=== PATIENT | female | born 1980 | race Caucasian/White ===

== ENCOUNTER → 2016-11-02 | Outpatient (CLI) | payer OTHER ==
[~2016-11-02] MED LIST: ABL10 PO; ATR25 PO; BUPR100T8 PO; BUPR150T7 PO; CIPR1TAB11 PO; CLON0.5T3 PO; CYNI1000; LORA-741 PO; ONDA4TAB10 SL; OXYC1TAB3 PO; OXYC7.5T65 PO; PHEN-876 PO; ROPI0.5T15 PO; SRQ/200 PO; SUMA50TA15 PO; VENL150C PO
[2016-11-02 16:37] LABS: BLOOD UREA NITROGEN 9 mg/dl (7-18); BUN/CREATININE RATIO 12.3 (10-20); CALCIUM 8.4 mg/dl (8.5-10.1); CARBON DIOXIDE 26 mmol/L (21-32); CHLORIDE 107 mmol/L (98-107); CREATININE 0.76 mg/dl (0.60-1.20); GLUCOSE 116 mg/dl (70-99); POTASSIUM 3.3 mmol/L (3.5-5.1); SODIUM 141 mmol/L (136-145)
[2016-11-02 16:48] LABS: CHOLESTEROL 187 mg/dl (0-200); CHOLESTEROL/HDL RATIO 4.3; HDL CHOLESTEROL 44 mg/dl; LDL CHOLESTEROL CALCULATED 80 mg/dl; TRIGLYCERIDES 314 mg/dl (0-150); VERY LOW DENSITY LIPOPROT CALC 63 mg/dl
[2016-11-03 06:16] LABS: ESTIMATED AVERAGE GLUCOSE 123 mg/dl; HA1C FLAG Normal (Normal)
== END | disposition home or self-care (01) ==
LOC: C.LABBFT 12:28
PROVIDERS: ATTEND Internal Medicine
DX: E11.9 Type 2 diabetes mellitus without complications (principal); E78.00 Pure hypercholesterolemia, unspecified; E87.6 Hypokalemia; E66.9 Obesity, unspecified

== ENCOUNTER 2016-12-27 17:30 | Emergency (ER) | payer OTHER ==
[~2016-12-27] VITALS: Ht 167.6 cm; Wt 129.8 kg
[~2016-12-27 17:30] MED LIST changes: -ABL10 PO; -ATR25 PO; -BUPR100T8 PO; -BUPR150T7 PO; -CIPR1TAB11 PO; -CYNI1000; -LORA-741 PO; -ONDA4TAB10 SL; -OXYC1TAB3 PO; -OXYC7.5T65 PO; -PHEN-876 PO
[2016-12-27 17:38] VITALS: TEMP 36.8; Ht 167.6 cm; Wt 129.8 kg
[2016-12-27 18:11] LABS: URINE APPEARANCE CLOUDY (CLEAR); URINE BILIRUBIN NEG (NEG); URINE COLOR YELLOW; URINE EPITHELIAL CELL AUTO >30 /lpf (0-5); URINE NITRITE NEG (NEG); URINE PH 5.5 (4.5-7.5); URINE SPECIFIC GRAVITY 1.027 (1.000-1.030); UROBILINOGEN NEG (NEG)
[2016-12-27 18:15] LABS: MANUAL MICROSCOPIC REQUIRED? NO; REVIEW REQ? YES
[2016-12-27 18:31] LABS: BASO % 0.5 %; BASO ABS # 0.04 K/uL (0-0.2); COMPLETE YES; EOS % 0.8 %; HEMATOCRIT 41.3 % (37-47); IG% 0.1 %; LYMPH % 35.9 %; LYMPH ABS # 2.85 K/uL (1.2-3.4); MEAN CELL VOLUME 88.1 fL (80-100); MEAN CORPUSCULAR HEMOGLOBIN 29.2 pg (25-34); MEAN CORPUSCULAR HGB CONC 33.2 g/dl (32-36); MEAN PLATELET VOLUME 10.8 fL (7.4-10.4); MONO % 7.6 %; NEUT % 55.1 %; PLATELET COUNT 342 K/uL (130-400); RED BLOOD COUNT 4.69 M/uL (4.2-5.4); WHITE BLOOD COUNT 7.94 K/uL (4.8-10.8)
[2016-12-27 18:41] LABS: BENZODIAZEPINE, URINE NEG (NEG); COCAINE,URINE NEG (NEG); PHENCYCLIDINE, URINE NEG (NEG)
[2016-12-27] MEDS ORDERED: LORA-741 PO (18:42)
[2016-12-27] MEDS ORDERED: ATR25 PO (18:42)
[2016-12-27] MEDS ORDERED: ABL10 PO (18:42)
[2016-12-27] MEDS ORDERED: BUPR150T7 PO (18:42)
[2016-12-27 18:48] LABS: CALCIUM 8.3 mg/dl (8.5-10.1); CREATININE 0.95 mg/dl (0.60-1.20); POTASSIUM 3.6 mmol/L (3.5-5.1)
[2016-12-27 18:58] LABS: THYROID STIMULATING HORMONE 1.71 uIu/ml (0.300-4.500)
[2016-12-27 19:12] LABS: URINE MUCUS PRESENT (NONE PRSENT)
[2016-12-27 19:29] VITALS: BP 115/72; PULSE 86; O2SAT 99
[2016-12-27 19:38] LABS: PREG INTERNAL NEGATIVE QC NEG CLEAR BACKGROUND; PREG INTERNAL POSITIVE QC POS CONTROL LINE
--- NOTE | 2016-12-27 21:46 | EMERGENCY ROOM VISIT NOTE ---
History Report prepared by Em: Felicia Leblanc Under the Supervision of: Dr. Hector Mosquera M.D. First contact with patient: 17:43 Chief Complaint: MENTAL HEALTH EVALUATION Stated Complaint: PYSCH EVAL- MEDS NOT WORKING- PHYSICIAN REFERRED History of Present Illness The patient is a 36 year old female who presents to the Emergency Room with complaints of persistent manic episodes starting [employer]. She was referred to the ED by her [facility] therapist who is concerned that the patient is manic. The patient is concerned that her medications are not working. She has gained 40 lbs in 3 years after starting Effexor and Seroquel despite having surgery for weight loss. She has had a short temper recently and has been spending money liberally. She reports being unable to sleep well through out the night and pacing in her room. She does not feel like herself. She has 2 stepchildren at home, but feels like she has no energy to do anything. She voiced her concerns to her therapist who told her to go to the ED. She denies any chance of . Her last menstrual period was 3 weeks ago. She denies having any pain. She denies any suicidal ideation or homicidal ideation. Source of History: patient Onset: [employer] Position: other (mental health) Quality: other (manic) Timing: other (perisi) Note: Pt reports spending money, weight gain, unable to sleep, does not feel like herself, low energy, short temper. Review of Systems See HPI for pertinent positives & negatives. A total of 10 systems reviewed and were otherwise negative. Past Medical & Surgical Medical Problems: (1) Bipolar disorder (2) Inevitable Surgical Problems: (1) Gastric bypass status for obesity Family History Cancer Diabetes mellitus Hypertension Lung disease Seizures Social History Smoking Status: Never Smoker Alcohol Use: none Drug Use: none Marital Status: single Housing Status: lives with family Occupation Status: employed Current/Historical Medications Scheduled Aripiprazole (Abilify), 10 MG PO QPM Bupropion Hcl (Wellbutrin Sr), 75 MG PO QAM Sumatriptan Succinate (Imitrex), 50 MG PO PRN Scheduled PRN Hydroxyzine HCl (Hydroxyzine HCl), 25 MG PO DAILY PRN for Anxiety/Agitation Lorazepam (Ativan), 0.5 MG PO Q6H PRN for Anxiety Allergies Coded Allergies: BEE STING (Verified Allergy, Intermediate, Redness/Hot, 12/27/16) Phenol (Verified Allergy, Intermediate, REDNESS AT INJECTION SITE, 12/27/16) Exenatide (Verified Allergy, Mild, REDNESS AT INJECTION SITE, 12/27/16) Neomycin (Verified Allergy, Mild, EAR DROPS -RASH IN EAR, 12/27/16) Metformin (Verified Adverse Reaction, Intermediate, SEVERE DIARRHEA, ) Zolpidem (Verified Adverse Reaction, Intermediate, INCREASED ANXIETY, ) Adhesives (Verified Adverse Reaction, Mild, RASH, 12/27/16) Physical Exam Vital Signs Date Time Temp Pulse Resp B/P (MAP) Pulse Ox O2 Delivery O2 Flow Rate FiO2 12/27/16 19:29 86 18 115/72 99 12/27/16 17:38 36.8 79 17 108/80 98 Room Air Physical Exam GENERAL: Patient is a healthy-appearing well-nourished HEAD: Normocephalic atraumatic EYES: Ocular movements intact pupils equal and react to light OROPHARYNX mucous membranes are moist no exudates present no erythema or edema present NECK: Supple no nuchal rigidity CHEST: Good equal expansion LUNGS: Clear and equal to auscultation CARDIAC: Normal S1 and S2 ABDOMEN: Soft nontender no guarding BACK: No CVA tenderness EXTREMITIES: No pain upon palpation normal muscle strength in all groups no clubbing cyanosis or edema NEURO: Patient is following commands is answering questions appropriately. Alert and oriented x3 Cranial Nerves 2-12 grossly intact PSYCH: Denies SI/HI on exam. Medical Decision & Procedures Laboratory Results 12/27/16 18:04 Red Blood Count 4.69, Mean Corpuscular Volume 88.1, Mean Corpuscular Hemoglobin 29.2, Mean Corpuscular Hemoglobin Concent 33.2, Mean Platelet Volume 10.8, Neutrophils (%) (Auto) 55.1, Lymphocytes (%) (Auto) 35.9, Monocytes (%) (Auto) 7.6, Eosinophils (%) (Auto) 0.8, Basophils (%) (Auto) 0.5, Neutrophils # (Auto) 4.38, Lymphocytes # (Auto) 2.85, Monocytes # (Auto) 0.60, Eosinophils # (Auto) 0.06, Basophils # (Auto) 0.04 12/27/16 18:04 Test 12/27/16 17:50 12/27/16 18:04 Urine Color YELLOW Urine Appearance CLOUDY (CLEAR) Urine pH 5.5 (4.5-7.5) Urine Specific [place] 1.027 (1.000-1.030) Urine Protein NEG (NEG) Urine Glucose (UA) 3+ (NEG) Urine Ketones TRACE (NEG) Urine Occult Blood TRACE (NEG) Urine Nitrite NEG (NEG) Urine Bilirubin NEG (NEG) Urine Urobilinogen NEG (NEG) Urine Leukocyte Esterase NEG (NEG) Urine WBC (Auto) 5-10 /hpf (0-5) Urine RBC (Auto) 0-4 /hpf (0-4) Urine Hyaline Casts (Auto) 10-30 /lpf (0-5) Urine Epithelial Cells (Auto) >30 /lpf (0-5) Urine Bacteria (Auto) 1+ (NEG) Urine Pathogenic Casts /lpf (0) Urine Mucus PRESENT (NONE PRSENT) Urine Test NEG (NEG) Urine Opiates Screen NEG (NEG) Urine Methadone, Qualitative NEG (NEG) Urine Barbiturates NEG (NEG) Urine Phencyclidine (PCP) Level NEG (NEG) Ur Amphetamine/Methamphetamine NEG (NEG) MDMA (Ecstasy) Screen POS (NEG) Urine Benzodiazepines Screen NEG (NEG) Urine Cocaine Metabolite NEG (NEG) Urine Marijuana (THC) NEG (NEG) White Blood Count 7.94 K/uL (4.8-10.8) Red Blood Count 4.69 M/uL (4.2-5.4) Hemoglobin 13.7 g/dL (12.0-16.0) Hematocrit 41.3 % (37-47) Mean Corpuscular Volume 88.1 fL (80-100) Mean Corpuscular Hemoglobin 29.2 pg (25-34) Mean Corpuscular Hemoglobin Concent 33.2 g/dl (32-36) Platelet Count 342 K/uL (130-400) Mean Platelet Volume 10.8 fL (7.4-10.4) Neutrophils (%) (Auto) 55.1 % Lymphocytes (%) (Auto) 35.9 % Monocytes (%) (Auto) 7.6 % Eosinophils (%) (Auto) 0.8 % Basophils (%) (Auto) 0.5 % Neutrophils # (Auto) 4.38 K/uL (1.4-6.5) Lymphocytes # (Auto) 2.85 K/uL (1.2-3.4) Monocytes # (Auto) 0.60 K/uL (0.11-0.59) Eosinophils # (Auto) 0.06 K/uL (0-0.5) Basophils # (Auto) 0.04 K/uL (0-0.2) RDW Standard Deviation 40.2 fL (36.4-46.3) RDW Coefficient of Variation 12.6 % (11.5-14.5) Immature Granulocyte % (Auto) 0.1 % Immature Granulocyte # (Auto) 0.01 K/uL (0.00-0.02) Anion Gap 9.0 mmol/L (3-11) Est Creatinine Clear Calc Drug Dose 110.9 ml/min Estimated GFR () 88.1 Estimated GFR (Non- 76.0 BUN/Creatinine Ratio 9.0 (10-20) Calcium Level 8.3 mg/dl (8.5-10.1) Total Bilirubin 0.8 mg/dl (0.2-1) Direct Bilirubin 0.1 mg/dl (0-0.2) Aspartate Amino Transf (AST/SGOT) 6 U/L (15-37) Alanine Aminotransferase (ALT/SGPT) 15 U/L (12-78) Alkaline Phosphatase 75 U/L (45-117) Total Protein 7.6 gm/dl (6.4-8.2) Albumin 3.8 gm/dl (3.4-5.0) Thyroid Stimulating Hormone (TSH) 1.710 uIu/ml (0.300-4.500) Ethyl Alcohol mg/dL < 3.0 mg/dl (0-3) Labs reviewed by ED physician. ED Course 175: Past medical records reviewed. The patient was evaluated in room A6. A complete history and physical examination was performed. 1925: Upon reexamination the patient is resting comfortably. I discussed results and treatment plan with the patient. She verbalizes agreement and understanding. The patient is ready for discharge. Medical Decision Differential diagnosis: Etiologies such as mood disorder, infection, hypoglycemia, electrolyte abnormalities, cardiac sources, intracerebral event, toxicologic, neurologic, as well as others were entertained. Medication Reconciliation: I attest that I have personally reviewed the patient' s current medication list Blood Pressure Screening: Patient was found to have normal blood pressure on screening and does not require follow up. This is a 36-year-old female who presents emergency department complaining of a manic episode. Patient reports she is having trouble sleeping however she denies being suicidal or homicidal. She was medically cleared by me. She was evaluated by case management. I do feel that the patient is well enough that she can be safely discharged home. The patient again denies being suicidal or homicidal. Case management also feels that the patient can be safely discharged home for follow-up with primary care physician. Impression Primary Impression: Mood disorder Scribe Attestation The scribe's documentation has been prepared under my direction and personally reviewed by me in its entirety. I confirm that the note above accurately reflects all work, treatment, procedures, and medical decision making performed by me. Departure Information Dispostion Home / Self-Care Referrals Lio Manzanares M.D. (PCP) Forms HOME CARE DOCUMENTATION FORM, IMPORTANT VISIT INFORMATION Patient Instructions My [facility] Additional Instructions Take Vistaril 4 x a day as needed Take Ativan 4x a day as needed Need follow up with PCP You have been examined and treated today on an emergency basis only. This is not a substitute for, or an effort to provide, complete comprehensive medical care. It is impossible to recognize and treat all injuries or illnesses in a single emergency department visit. It is therefore important that you follow up closely with Dr Manzanares. Call as soon as possible for an appointment. Thank you for your time and consideration. I look forward to speaking with you again soon. Please don't hesitate to call us if you have any questions.
[2017-05-23] MEDS ORDERED: SUMA50TA15 PO (12:49)
[2017-05-23] MEDS ORDERED: CYNI1000 (12:49)
[2017-06-03] MEDS ORDERED: PHEN-876 PO (07:07)
[2017-06-03] MEDS ORDERED: CIPR1TAB11 PO (07:07)
[2017-06-03] MEDS ORDERED: OXYC7.5T65 PO (07:07)
== END 2016-12-27 19:30 | disposition home or self-care (01) ==
LOC: C.EDB 17:31 → C.EDA 19:30
DX: F39 Unspecified mood [affective] disorder (principal); Z79.899 Other long term (current) drug therapy; Z82.0 Family history of epilepsy and other diseases of the nervous system; Z82.49 Family history of ischemic heart disease and other diseases of the circulatory system; Z83.3 Family history of diabetes mellitus; Z83.6 Family history of other diseases of the respiratory system; Z98.84 Bariatric surgery status

== ENCOUNTER → 2017-04-17 | Outpatient (CLI) | payer OTHER ==
[~2017-04-17] MED LIST changes: +ABL10 PO; +ATR25 PO; +BUPR150T7 PO; -CLON0.5T3 PO; +LORA-741 PO; -ROPI0.5T15 PO; -SRQ/200 PO; -VENL150C PO
[2017-04-17 17:30] LABS: BASO % 0.7 %; BASO ABS # 0.06 K/uL (0-0.2); COMPLETE YES; EOS % 1.6 %; IG% 0.1 %; LYMPH % 29.1 %; LYMPH ABS # 2.34 K/uL (1.2-3.4); MEAN CELL VOLUME 90.2 fL (80-100); MEAN CORPUSCULAR HEMOGLOBIN 30.3 pg (25-34); MEAN CORPUSCULAR HGB CONC 33.6 g/dl (32-36); MEAN PLATELET VOLUME 11.7 fL (7.4-10.4); MONO % 5.7 %; NEUT % 62.8 %; PLATELET COUNT 267 K/uL (130-400); RED BLOOD COUNT 4.88 M/uL (4.2-5.4); WHITE BLOOD COUNT 8.03 K/uL (4.8-10.8)
[2017-04-17 18:14] LABS: POTASSIUM 3.5 mmol/L (3.5-5.1)
[2017-04-17 18:19] LABS: ALB/GLOB RATIO 0.9 (0.9-2); ALKALINE PHOSPHATASE 74 U/L (45-117); ALT/SGPT 18 U/L (12-78); BLOOD UREA NITROGEN 7 mg/dl (7-18); BUN/CREATININE RATIO 6.4 (10-20); CALCIUM 9.4 mg/dl (8.5-10.1); CARBON DIOXIDE 24 mmol/L (21-32); CHLORIDE 106 mmol/L (98-107); FERRITIN 53.7 ng/ml (8.0-388.0); GLUCOSE 109 mg/dl (70-99); SODIUM 141 mmol/L (136-145)
[2017-04-17 18:21] LABS: AST/SGOT 12 U/L (15-37)
== END | disposition home or self-care (01) ==
LOC: C.LABBFT 11:49
PROVIDERS: ATTEND Internal Medicine Hematology & Oncology
DX: D50.9 Iron deficiency anemia, unspecified (principal); E87.6 Hypokalemia

== ENCOUNTER → 2017-04-18 | Outpatient (CLI) | payer OTHER | END | disposition home or self-care (01) | LOC: C.LABBFT 11:19 | PROVIDERS: ATTEND Family Medicine | DX: E53.8 Deficiency of other specified B group vitamins (principal) ==

== ENCOUNTER 2017-05-14 19:36 | Emergency (ER) | payer OTHER ==
[~2017-05-14] VITALS: Ht 167.6 cm; Wt 125.7 kg
[2017-05-14 19:42] VITALS: TEMP 36.9; Ht 167.6 cm; Wt 125.7 kg
[2017-05-14] MEDS ORDERED: ONDANSETRON INJ 2 MG/ML 2 ML VIAL IV STA (19:48)
[2017-05-14] MEDS ORDERED: MoRPHine SULFATE 4 MG/ML 1 ML CARP\\VIAL IV STA (19:48)
[2017-05-14 20:39] LABS: URINE APPEARANCE CLOUDY (CLEAR); URINE BILIRUBIN NEG (NEG); URINE COLOR DK YELLOW; URINE EPITHELIAL CELL AUTO >30 /lpf (0-5); URINE NITRITE NEG (NEG); URINE PH 5.5 (4.5-7.5); URINE SPECIFIC GRAVITY 1.027 (1.000-1.030); UROBILINOGEN NEG (NEG); ZZUR CULT IF INDIC CLEAN CATCH NO
[2017-05-14 20:42] LABS: MANUAL MICROSCOPIC REQUIRED? NO; REVIEW REQ? NO
[2017-05-14] MEDS ORDERED: DiphenhydrAMINE HCL 50 MG/ML VIAL ONE (20:43)
[2017-05-14] MEDS ORDERED: DiphenhydrAMINE HCL 50 MG/ML VIAL IV STA (20:48)
[2017-05-14 20:57] LABS: BASO % 0.3 %; BASO ABS # 0.03 K/uL (0-0.2); COMPLETE YES; EOS % 0.5 %; HEMATOCRIT 40.7 % (37-47); IG% 0.2 %; LYMPH % 17.9 %; LYMPH ABS # 2.06 K/uL (1.2-3.4); MEAN CORPUSCULAR HEMOGLOBIN 30.1 pg (25-34); MEAN CORPUSCULAR HGB CONC 33.4 g/dl (32-36); MEAN PLATELET VOLUME 10.7 fL (7.4-10.4); MONO % 6.3 %; NEUT % 74.8 %; PLATELET COUNT 298 K/uL (130-400); RED BLOOD COUNT 4.52 M/uL (4.2-5.4); WHITE BLOOD COUNT 11.53 K/uL (4.8-10.8)
[2017-05-14 21:03] LABS: ISTAT CREATININE 1.1 mg/dl (0.6-1.3); ISTAT HEMOGLOBIN 14.6 g/dl (12.0-16.0); ISTAT IONIZED CALCIUM 1.12 mmol/l (1.12-1.32)
[2017-05-14 21:13] LABS: BUN/CREATININE RATIO 8.3 (10-20); CALCIUM 8.8 mg/dl (8.5-10.1); CREATININE 1.19 mg/dl (0.60-1.20); POTASSIUM 4.1 mmol/L (3.5-5.1)
[2017-05-14] MEDS ORDERED: BUPR100T8 PO (21:22)
[2017-05-14] MEDS ORDERED: ABL10 PO (21:22)
--- NOTE | 2017-05-14 21:23 | DIAGNOSTIC IMAGING REPORT ---
ABDOMEN AND PELVIS CT WITH IV CONTRAST CT DOSE: 1575.71 mGy.cm HISTORY: Right lower quadrant abdominal pain. TECHNIQUE: Multiaxial CT images of the abdomen and pelvis were performed following the use of intravenous contrast. A dose lowering technique was utilized adhering to the principles of ALARA. COMPARISON STUDY: None. FINDINGS: A 5 mm nodule within the right lower lobe on image 3. The left lung base is clear. No pneumoperitoneum. No pneumatosis. No suspicious lytic or blastic osseous lesions. Postoperative changes consistent with prior gastric bypass. Focal hypodensity within the left hepatic lobe adjacent to the falciform ligament consistent with focal fat. Otherwise, the liver, spleen, adrenal glands, pancreas are unremarkable. Punctate stone within the left kidney. Right perinephric edema. Delayed right nephrogram. Mild right hydroureteronephrosis secondary to an obstructing 8 mm stone within the distal right ureter at the level of the iliac vessels. This is best in image 70. Bladder decompressed but appears unremarkable. The uterus and ovaries are within normal limits. No bowel wall thickening or obstruction. Normal appendix. IMPRESSION: 1. An 8 mm obstructing stone within the distal right ureter resulting in mild right hydronephrosis. 2. Left-sided nephrolithiasis. No left-sided hydronephrosis. 3. No bowel wall thickening or obstruction. 4. Normal appendix. 5. A 5 mm indeterminate pulmonary nodule within the right lower lobe. Please refer to the chart below for recommended follow-up. Please refer to below summary of Fleischner criteria recommendations for follow-up of incidental CT nodules (Evelio Acosta, Guidelines for management of small pulmonary nodules detected on CT scans: A statement from the Fleischner Society, Radiology 237: [id number].) SOLID NODULES Solitary nodule size: <6 mm * Low risk patients: no follow-up needed * high risk patients: optional CT at 12 months Solitary nodule size: 6-8 mm * Low risk patients: follow-up at 6-12 months, then consider further follow-up at 18-24 months * high risk patients: initial follow-up CT at 6-12 months and then at 18-24 months if no change Solitary nodule size: >8 mm * either low or high risk patients - consider follow-up CT at 3 months, and/or CT-PET, and/or biopsy Multiple nodules size: <6 mm * Low risk patients: no routine follow-up * high risk patients: optional CT at 12 months Multiple nodules size: 6-8 mm * Low risk patients: follow-up at 3-6 months, then consider further follow-up at 18-24 months * high risk patients: follow-up at 3-6 months, then at 18-24 months if no change Multiple nodules size: >8 mm * Low risk patients: follow-up at 3-6 months, then consider further follow-up at 18-24 months * high risk patients: follow-up at 3-6 months, then at 18-24 months if no change Note: newly detected indeterminate nodule in persons 35 years of age or older. * Low risk patients: minimal or absent history of smoking and/or other known risk factors * high risk patients: history of smoking or of other known risk factors (e.g. first degree relative with lung cancer, or exposure to asbestos, radon, uranium) * if a nodule up to 8 mm is partly solid or is ground glass further follow-up is required after 24 months to exclude possible slow growing adenocarcinoma (JOHANA) SUBSOLID NODULES Solitary pure ground-glass nodule * nodule size <6 mm - no CT follow-up required * nodule size >=6 mm - follow-up CT at 6-12 months, then every 2 years until 5 years Solitary part-solid nodule * nodule size <6 mm - no CT follow-up required * nodule size >=6 mm - follow-up CT at 3-6 months. If unchanged, and solid component remains <6 mm, then annual follow-up for 5 years Multiple subsolid nodules * nodule size <6 mm - follow-up CT at 3-6 months, consider further follow-up at 2 and 4 years if stable * nodule size >=6 mm - follow-up CT at 3-6 months, subsequent management based on the most suspicious nodule(s) Electronically signed by: Sadi Torres M.D. 05/14/2017 9:21 PM Dictated Date/Time: 05/14/2017 9:12 PM
[2017-05-14 21:25] LABS: PREG INTERNAL NEGATIVE QC NEG CLEAR BACKGROUND; PREG INTERNAL POSITIVE QC POS CONTROL LINE
[2017-05-14] MEDS ORDERED: KETOROLAC TROMETHAMINE 30 MG/ML VIAL IV STA (21:31)
--- NOTE | 2017-05-14 21:31 | EMERGENCY ROOM VISIT NOTE ---
History First contact with patient: 19:43 Chief Complaint: ABDOMINAL PAIN Stated Complaint: PAIN IN R AREA OF STOMACH Nursing Triage Summary: patient to ed via triage for LRQ Abdominal pain, N/V states "i have a sharp pain in my abdomen, started about an hr ago. I still have my appendix." History of Present Illness The patient is a 37 year old female who presents to the Emergency Room with complaints of right lower quadrant pain for the past few hours described as aching, ranging in severity 7 out of 10. Nothing makes it better or worse. Patient complains of some nausea. Patient says she's had kidney stones before but this does not feel the same. Patient denies chest pain, dyspnea, back pain , fever, chills, urinary symptoms, vaginal itching or discharge. Review of Systems See HPI for pertinent positives & negatives. A total of 10 systems reviewed and were otherwise negative. Past Medical/Surgical History Medical Problems: (1) Bipolar disorder (2) Inevitable Surgical Problems: (1) Gastric bypass status for obesity Family History Cancer Diabetes mellitus Hypertension Lung disease Seizures Social History Smoking Status: Never Smoker Alcohol Use: none Drug Use: none Marital Status: single Housing Status: lives with family Occupation Status: employed Current/Historical Medications Scheduled Aripiprazole (Abilify), 10 MG PO QPM Bupropion Hcl (Wellbutrin Sr), 75 MG PO QAM Sumatriptan Succinate (Imitrex), 50 MG PO PRN Scheduled PRN Hydroxyzine HCl (Hydroxyzine HCl), 25 MG PO DAILY PRN for Anxiety/Agitation Lorazepam (Ativan), 0.5 MG PO Q6H PRN for Anxiety Allergies Coded Allergies: BEE STING (Verified Allergy, Intermediate, Redness/Hot, 12/27/16) Phenol (Verified Allergy, Intermediate, REDNESS AT INJECTION SITE, 12/27/16) Exenatide (Verified Allergy, Mild, REDNESS AT INJECTION SITE, 12/27/16) Neomycin (Verified Allergy, Mild, EAR DROPS -RASH IN EAR, 12/27/16) Metformin (Verified Adverse Reaction, Intermediate, SEVERE DIARRHEA, ) Zolpidem (Verified Adverse Reaction, Intermediate, INCREASED ANXIETY, ) Adhesives (Verified Adverse Reaction, Mild, RASH, 12/27/16) Physical Exam Vital Signs Date Time Temp Pulse Resp B/P (MAP) Pulse Ox O2 Delivery O2 Flow Rate FiO2 05/14/17 19:42 36.9 59 20 147/87 99 Room Air Physical Exam VITALS: Vitals are noted on the nurse's note and reviewed by myself. Vital signs hypertensive GENERAL: Pleasant female, in no acute distress, nondiaphoretic, well-developed well-nourished. SKIN: The skin was without rashes, erythema, edema, or bruising. There is no tenting of the skin. Capillary reflex less than 2 seconds. HEAD: Normocephalic atraumatic. EARS: External auditory canals clear, tympanic membranes pearly nix without erythema or effusion bilaterally. EYES: Pupils equal round and reactive to light and accommodation. Conjunctivae without injection, sclerae without icterus. Extraocular movements intact. NOSE: Patent, turbinates without inflammation or discharge. MOUTH: Mucous membranes moist. Pharynx without erythema or exudate. Uvula midline. Airway patent. Tongue does not deviate. NECK: Supple without nuchal rigidity. No lymphadenopathy. No thyromegaly. Cervical spine is nontender. No JVD. HEART: Regular rate and rhythm without murmurs gallops or rubs. LUNGS: Clear to auscultation bilaterally without wheezes, rales or rhonchi. No dullness to percussion. No retractions or accessory muscle use. ABDOMEN: Positive bowel sounds x 4. Normal tympanic percussion. Soft, protuberant, obese, tender to palpation right lower quadrant, no CVA tenderness , without masses or organomegaly. Izaguirre sign negative. No guarding or rebound tenderness. MUSCULOSKELETAL: No muscle atrophy, erythema, or edema noted. NEURO: Patient was alert and oriented to person place and time. Normal sensation to light and sharp touch. No focal neurological deficits. Medical Decision & Procedures Laboratory Results 05/14/17 19:45 Red Blood Count 4.52, Mean Corpuscular Volume 90.0, Mean Corpuscular Hemoglobin 30.1, Mean Corpuscular Hemoglobin Concent 33.4, Mean Platelet Volume 10.7, Neutrophils (%) (Auto) 74.8, Lymphocytes (%) (Auto) 17.9, Monocytes (%) (Auto) 6.3, Eosinophils (%) (Auto) 0.5, Basophils (%) (Auto) 0.3, Neutrophils # (Auto) 8.63, Lymphocytes # (Auto) 2.06, Monocytes # (Auto) 0.73, Eosinophils # (Auto) 0.06, Basophils # (Auto) 0.03 05/14/17 19:45 Test 05/14/17 19:45 05/14/17 20:12 05/14/17 20:50 White Blood Count 11.53 K/uL (4.8-10.8) Red Blood Count 4.52 M/uL (4.2-5.4) Hemoglobin 13.6 g/dL (12.0-16.0) Hematocrit 40.7 % (37-47) Mean Corpuscular Volume 90.0 fL (80-100) Mean Corpuscular Hemoglobin 30.1 pg (25-34) Mean Corpuscular Hemoglobin Concent 33.4 g/dl (32-36) Platelet Count 298 K/uL (130-400) Mean Platelet Volume 10.7 fL (7.4-10.4) Neutrophils (%) (Auto) 74.8 % Lymphocytes (%) (Auto) 17.9 % Monocytes (%) (Auto) 6.3 % Eosinophils (%) (Auto) 0.5 % Basophils (%) (Auto) 0.3 % Neutrophils # (Auto) 8.63 K/uL (1.4-6.5) Lymphocytes # (Auto) 2.06 K/uL (1.2-3.4) Monocytes # (Auto) 0.73 K/uL (0.11-0.59) Eosinophils # (Auto) 0.06 K/uL (0-0.5) Basophils # (Auto) 0.03 K/uL (0-0.2) RDW Standard Deviation 42.8 fL (36.4-46.3) RDW Coefficient of Variation 13.2 % (11.5-14.5) Immature Granulocyte % (Auto) 0.2 % Immature Granulocyte # (Auto) 0.02 K/uL (0.00-0.02) Est Creatinine Clear Calc Drug Dose 86.0 ml/min Estimated GFR () 66.6 Estimated GFR (Non- 57.5 BUN/Creatinine Ratio 8.3 (10-20) Calcium Level 8.8 mg/dl (8.5-10.1) Urine Color DK YELLOW Urine Appearance CLOUDY (CLEAR) Urine pH 5.5 (4.5-7.5) Urine Specific White Owl 1.027 (1.000-1.030) Urine Protein 1+ (NEG) Urine Glucose (UA) NEG (NEG) Urine Ketones NEG (NEG) Urine Occult Blood 3+ (NEG) Urine Nitrite NEG (NEG) Urine Bilirubin NEG (NEG) Urine Urobilinogen NEG (NEG) Urine Leukocyte Esterase NEG (NEG) Urine WBC (Auto) 5-10 /hpf (0-5) Urine RBC (Auto) >30 /hpf (0-4) Urine Hyaline Casts (Auto) 1-5 /lpf (0-5) Urine Epithelial Cells (Auto) >30 /lpf (0-5) Urine Bacteria (Auto) NEG (NEG) Bedside Hemoglobin 14.6 g/dl (12.0-16.0) Bedside Hematocrit 43 % (37-47) Bedside Sodium 140 mEq/L (135-144) Bedside Potassium 4.0 mEq/L (3.3-5.0) Bedside Chloride 102 mEq/L (101-112) Bedside Total CO2 25 mEq/l (24-31) Anion Gap 18.0 mmol/L (16-25) Bedside Blood Urea Nitrogen 10 mg/dl (7-18) Bedside Creatinine 1.1 mg/dl (0.6-1.3) Bedside Glucose (other) 118 mg/dl (70-99) Bedside Ionized Calcium (Anna) 1.12 mmol/l (1.12-1.32) Medications Administered Medications (Trade) Dose Ordered Sig/Danette Route Start Time Stop Time Status Last Admin Dose Admin Morphine Sulfate (MoRPHine SULFATE INJ) 4 mg NOW STAT IV 05/14/17 19:48 05/14/17 19:52 DC 05/14/17 20:39 4 MG Ondansetron HCl (Zofran Inj) 4 mg NOW STAT IV 05/14/17 19:48 05/14/17 19:52 DC 05/14/17 20:39 4 MG Diphenhydramine HCl (Benadryl Inj) 25 mg NOW STAT IV 05/14/17 20:48 05/14/17 20:49 DC 05/14/17 20:48 25 MG ED Course Prior records/ancillary studies reviewed. Triage Nursing notes reviewed. Additional history obtained from the family. The patient's history was concerning for right lower abdominal pain. Differential diagnosis: Etiologies such as renal colic, appendicitis, diverticulitis, mesenteric ischemia, aortic pathology, infections, inflammatory bowel disease, PUD, biliary pathology, UTI, as well as others were entertained. Physical examination findings: As above. ER treatment provided: Morphine, Zofran, Benadryl. Patient had a mild rash after the morphine and was given Benadryl. This is marked as a allergy. On reassessment the patient felt better. Diagnostic interpretation by me: The labs revealed stable H&H. Urinalysis revealed hematuria. There was no sign of UTI. Imaging studies: CT of the abdomen and pelvis as above. ABDOMEN AND PELVIS CT WITH IV CONTRAST CT DOSE: 1575.71 mGy.cm HISTORY: Right lower quadrant abdominal pain. TECHNIQUE: Multiaxial CT images of the abdomen and pelvis were performed following the use of intravenous contrast. A dose lowering technique was utilized adhering to the principles of ALARA. COMPARISON STUDY: None. FINDINGS: A 5 mm nodule within the right lower lobe on image 3. The left lung base is clear. No pneumoperitoneum. No pneumatosis. No suspicious lytic or blastic osseous lesions. Postoperative changes consistent with prior gastric bypass. Focal hypodensity within the left hepatic lobe adjacent to the falciform ligament consistent with focal fat. Otherwise, the liver, spleen, adrenal glands, pancreas are unremarkable. Punctate stone within the left kidney. Right perinephric edema. Delayed right nephrogram. Mild right hydroureteronephrosis secondary to an obstructing 8 mm stone within the distal right ureter at the level of the iliac vessels. This is best in image 70. Bladder decompressed but appears unremarkable. The uterus and ovaries are within normal limits. No bowel wall thickening or obstruction. Normal appendix. IMPRESSION: 1. An 8 mm obstructing stone within the distal right ureter resulting in mild right hydronephrosis. 2. Left-sided nephrolithiasis. No left-sided hydronephrosis. 3. No bowel wall thickening or obstruction. 4. Normal appendix. 5. A 5 mm indeterminate pulmonary nodule within the right lower lobe. Please refer to the chart below for recommended follow-up. Please refer to below summary of Fleischner criteria recommendations for follow-up of incidental CT nodules (Evelio Acosta, Guidelines for management of small pulmonary nodules detected on CT scans: A statement from the Fleischner Society, Radiology 237: [phone].) SOLID NODULES Solitary nodule size: <6 mm * Low risk patients: no follow-up needed * high risk patients: optional CT at 12 months Solitary nodule size: 6-8 mm * Low risk patients: follow-up at 6-12 months, then consider further follow-up at 18-24 months * high risk patients: initial follow-up CT at 6-12 months and then at 18-24 months if no change Solitary nodule size: >8 mm * either low or high risk patients - consider follow-up CT at 3 months, and/or CT-PET, and/or biopsy Multiple nodules size: <6 mm * Low risk patients: no routine follow-up * high risk patients: optional CT at 12 months Multiple nodules size: 6-8 mm * Low risk patients: follow-up at 3-6 months, then consider further follow-up at 18-24 months * high risk patients: follow-up at 3-6 months, then at 18-24 months if no change Multiple nodules size: >8 mm * Low risk patients: follow-up at 3-6 months, then consider further follow-up at 18-24 months * high risk patients: follow-up at 3-6 months, then at 18-24 months if no change Note: newly detected indeterminate nodule in persons 35 years of age or older. * Low risk patients: minimal or absent history of smoking and/or other known risk factors * high risk patients: history of smoking or of other known risk factors (e.g. first degree relative with lung cancer, or exposure to asbestos, radon, uranium) * if a nodule up to 8 mm is partly solid or is ground glass further follow-up is required after 24 months to exclude possible slow growing adenocarcinoma (JOHANA) SUBSOLID NODULES Solitary pure ground-glass nodule * nodule size <6 mm - no CT follow-up required * nodule size >=6 mm - follow-up CT at 6-12 months, then every 2 years until 5 years Solitary part-solid nodule * nodule size <6 mm - no CT follow-up required * nodule size >=6 mm - follow-up CT at 3-6 months. If unchanged, and solid component remains <6 mm, then annual follow-up for 5 years Multiple subsolid nodules * nodule size <6 mm - follow-up CT at 3-6 months, consider further follow-up at 2 and 4 years if stable * nodule size >=6 mm - follow-up CT at 3-6 months, subsequent management based on the most suspicious nodule(s) Electronically signed by: Sadi Torres M.D. 05/14/2017 9:21 PM Dictated Date/Time: 05/14/2017 9:12 PM It appears that the patient has isolated renal colic from a right sided stone. Patient's pain was under control. She was neurovascularly and neurologically intact. She did not have acute abdomen on exam. She is advised to strain her urine until the stone passes and take medications as directed. She is advised to follow-up urology or here in the ER sooner for abdominal pain, fevers, vomiting, worsening signs or symptoms or as needed. She is advised to follow- up with a lung nodule clinic for lung nodule seen on CT imaging today. By the evaluation outlined above emergent etiologies such as appendicitis, diverticulitis, mesenteric ischemia, aortic pathology, infections, inflammatory bowel disease, PUD, biliary pathology, UTI, as well as others were deemed relatively unlikely. The pt informed about the findings as listed above. All questions were answered and pleased with the treatment. Return instructions were outlined and the patient was discharged in stable condition. Outpatient prescription management: Oxy IR 5mg 1-2 po Q4 hrs prn Zofran Patient reviewed on the [place] drug monitoring site with no red flags noted. Referral: The pt was referred to [facility] for follow up care regarding their stone. or The patient was referred back to their primary care physician for follow-up in 2 to 3 days for a recheck of the current condition. Case reviewed by attending Medical Decision As above Impression Primary Impression: Renal colic on right side Additional Impression: Lung nodule Departure Information Dispostion Home / Self-Care Condition GOOD Referrals Lio Manzanares M.D. (PCP) Patient Instructions [facility] Additional Instructions DO NOT drive, drink alcohol, operate machinery, or perform dangerous activities today. You were given medications in the ER that can affect your ability to safely function or operate a vehicle. Follow-up with the lung nodule clinic for nodule seen on CT imaging today. Case management gave you information on this. Oxycodone Immediate Release (OxyIR) 5mg: Take 1-2 pills every four hours for pain. Avoid alcohol, operating machinery or dangerous equipment, working on ladders or roofs, DRIVING, or situations where being under the influence may be dangerous. It is recommended to use an [id number] stool softener such as Colace, 100mg twice daily while taking this medication to avoid constipation. Zofran 4 mg: Take one every six hours as needed for nausea. Avoid alcohol, operating machinery or dangerous equipment, working on ladders or roofs, DRIVING , or situations where being under the influence may be dangerous. Ibuprofen(Motrin, Advil) may be used for fever or pain. Use 600mg every six hours as needed. Take with food. Avoid using more than 2400mg in a 24 hour period. Do not use 2400mg per day for more than three consecutive days without physician direction. Prolonged inappropriate use can lead to stomach upset or ulcers. This medication can be taken if you need to drive, work, or perform activities which may be dangerous when taking narcotic pain medication. (AND/OR) Acetaminophen(Tylenol) may be used for fever or pain. Use 1000mg every six hours as needed. Avoid using more than 3000mg in a 24 hour period. This medication can be taken if you need to drive, work, or perform activities which may be dangerous when taking narcotic pain medication. Strain your urine and collect all the stones or debris for the urologists. Rest and avoid strenuous activity until your stone passes and symptoms resolve. Drink plenty of fluids. Continue current medications. Return to the ER for worsening abdominal or back pain, vomiting, fevers, passing out, or as needed. Follow up with urology in 2-3 days, call for an appointment. Problem Qualifiers
[2017-05-14] MEDS ORDERED: OXYC1TAB3 PO (21:35)
[2017-05-14] MEDS ORDERED: ONDA4TAB10 SL (21:35)
[2017-05-14] MEDS ORDERED: ONDANSETRON HOME PACK 4MG OD TAB PO ONE (21:45)
[2017-05-14] MEDS ORDERED: OXYCODONE IR HOME PACK PO ONE (21:45)
[2017-05-14 21:50] VITALS: BP 134/87; PULSE 68; O2SAT 98
== END 2017-05-14 21:52 | disposition home or self-care (01) ==
LOC: C.EDB 19:37 → C.EDA 21:52
DX: N20.2 Calculus of kidney with calculus of ureter (principal); R91.1 Solitary pulmonary nodule; R10.31 Right lower quadrant pain

== ENCOUNTER → 2017-06-03 | Day surgery (SDC) | payer OTHER ==
[2017-05-23 12:50] VITALS: BMI 45.0
--- NOTE | 2017-05-23 13:20 | PAT Medication Instructions ---
Service Date May 23, 2017. Current Home Medication List Aripiprazole (Abilify), 10 MG PO QPM Bupropion (Wellbutrin Sr), 100 MG PO QAM Cyanocobalamin (Cyanocobalamin), Unknown Dose Q3MO Sumatriptan Succinate (Imitrex), 50 MG PO UD PRN for Migraine Medication Instructions For Your Scheduled Surgery - Take the following medications the morning of surgery with a sip of water OTHERWISE NOTHING TO EAT OR DRINK AFTER MIDNIGHT: Sumatriptan Succinate (Imitrex), 50 MG PO UD PRN for Migraine Bupropion (Wellbutrin Sr), 100 MG PO QAM - Take the following medications as scheduled the night before surgery: Sumatriptan Succinate (Imitrex), 50 MG PO UD PRN for Migraine Aripiprazole (Abilify), 10 MG PO QPM If you have any questions please call us at [phone] or [phone] or [phone]
[2017-05-23 13:53] LABS: BASO % 0.9 %; BASO ABS # 0.06 K/uL (0-0.2); COMPLETE YES; HEMATOCRIT 41.5 % (37-47); LYMPH % 32.7 %; LYMPH ABS # 2.16 K/uL (1.2-3.4); MEAN CELL VOLUME 90.4 fL (80-100); MEAN CORPUSCULAR HEMOGLOBIN 30.1 pg (25-34); MEAN CORPUSCULAR HGB CONC 33.3 g/dl (32-36); MEAN PLATELET VOLUME 10.5 fL (7.4-10.4); MONO % 7.1 %; NEUT % 57.3 %; PLATELET COUNT 329 K/uL (130-400); RED BLOOD COUNT 4.59 M/uL (4.2-5.4); URINE APPEARANCE CLEAR (CLEAR); URINE BILIRUBIN NEG (NEG); URINE COLOR YELLOW; URINE NITRITE NEG (NEG); URINE SPECIFIC GRAVITY 1.014 (1.000-1.030); UROBILINOGEN NEG (NEG); WHITE BLOOD COUNT 6.61 K/uL (4.8-10.8)
[2017-05-23 13:56] LABS: MANUAL MICROSCOPIC REQUIRED? NO; REVIEW REQ? NO
--- NOTE | 2017-05-23 14:32 | DIAGNOSTIC IMAGING REPORT ---
CHEST 2 VIEWS ROUTINE HISTORY: 37 years-old Female PAT preoperative exam without acute chest complaints COMPARISON: Chest radiograph 11/03/2013 TECHNIQUE: PA and lateral views of the chest FINDINGS: Cardiomediastinal and hilar silhouettes are within normal limits. No pneumothorax, pleural effusion, focal airspace consolidation or overt pulmonary edema. Bones of the chest are grossly intact. No significant degenerative changes. Patient obesity noted. IMPRESSION: No acute cardiopulmonary process. The above report was generated using voice recognition software. It may contain grammatical, syntax or spelling errors. Electronically signed by: Kevin Thomas M.D. 05/23/2017 2:30 PM Dictated Date/Time: 05/23/2017 2:30 PM
[2017-05-23 16:29] LABS: CALCIUM 8.7 mg/dl (8.5-10.1); CREATININE 1.2 mg/dl (0.60-1.20); POTASSIUM 4.1 mmol/L (3.5-5.1)
[~2017-06-03] VITALS: Ht 167.6 cm; Wt 127.6 kg
[~2017-06-03] MED LIST changes: -ATR25 PO; +ATROPINE SULFATE 0.1 MG/ML 5ML SYR IV PRN; +BUPR100T8 PO; -BUPR150T7 PO; +CIPR1TAB11 PO; +CIPROFLOXACIN / D5W 400 MG IV SCH; +CONRAY 30% 150ML BOTTLE ONE; +CYNI1000; +EpHEDrine SULFATE INJ 50 MG/ML AMP IV PRN; +FENTANYL CITRATE INJ 50 MCG/1 ML 2 ML VIAL IV PRN; +FENTANYL CITRATE INJ 50 MCG/1 ML 2 ML VIAL ONE; +FLUMAZENIL 0.1 MG/1 ML 10 ML VIAL IV PRN; +KETOROLAC TROMETHAMINE 30 MG/ML VIAL ONE; +LABETALOL HCL IV 5 MG/ML 20ML IV PRN; +LACTATED RINGER'S 1000ML 1,000 ML IV SCH; +LIDOCAINE HCL 2% 2 ML VIAL (20MG/ML) ONE; -LORA-741 PO; +MIDAZOLAM HCL 1 MG/ML 2ML VIAL ONE; +NALOXONE HCL 0.4 MG/1 ML VIAL/CARP IV PRN; +ONDANSETRON INJ 2 MG/ML 2 ML VIAL IV PRN; +ONDANSETRON INJ 2 MG/ML 2 ML VIAL ONE; +OXYC7.5T65 PO; +OXYCODONE/ACETAMINOPHEN 7.5-325 TAB PO PRN; +PHEN-876 PO; +PROMETHAZINE HCL INJ 12.5 MG in SODIUM CHLORIDE 0.9% 50ML 50 ML IV PRN; +PROPOFOL IV EMULSION 10 MG/ML 100 ML VIAL IV ONE; +PROPOFOL IV EMULSION 10 MG/ML 20 ML VIAL IV ONE
[2017-06-03 05:34] VITALS: BP 122/75; PULSE 71; TEMP 36.7; O2SAT 97; Ht 167.6 cm; Wt 127.6 kg
--- NOTE | 2017-06-03 07:03 | History & Physical Bridge Note ---
H&P Re-Evaluation Bridge Note: I have examined the patient, reviewed the History & Physical and in the interval since the performance of the History & Physical I have noted the following changes of clinical significance: No changes noted
--- NOTE | 2017-06-03 07:05 | [facility] Operative Report ---
Operative Report Operative Date Jun 03, 2017. Pre-Operative Diagnosis Right Ureteral Stone Post-Operative Diagnosis Same Procedure(s) Performed Cystoscopy, Right URS, Laser Litho, Retrograde, Stent Surgeon Avelino Estimated Blood Loss 5cc Findings Right obstructing stone. Specimens none Drains 5x24 R Anesthesia General Complication(s) None Disposition Recovery Room / PACU Indications Patient with obstructing stone that failed passage. Risks and benefits discussed and patient agrees to proceed. Description of Procedure Patient was consented and brought back to the operating room. Patient was placed under anesthesia in the supine position. Patient was prepped and draped in the regular sterile fashion. A time out was completed. A 30degree Cystoscope was placed into the bladder and the entire bladder was examined. The UO's were identified. The right was cannulized with a catheter and a retrograde pyelogram was completed. A wire was then placed. The short rigid ureteroscope was selected and taken into the right UO. At distal-mid ureter an obstructing stone was identified. The laser was selected and the stone pulverized to dust and small fragments. The area was bypassed and the scope taken to the proximal ureter. The remainder of the ureter was clear of fragments or stone. The scope was slowly removed and the entire ureter examined. All fragments passed into the bladder and the ureter was clear of large fragments. The scope was removed and the wire maintained. With the wire in place, a 6 x [24] Double J stent was placed. It was confirmed with fluoroscopy. With the stent in place, the bladder was emptied. The scope was removed. The patient was cleaned, aroused from anesthesia, and transferred to the pacu in stable condition having tolerated the procedure well with no complications. I was present and participated in all aspects of the procedure. The patient will be monitored in the PACU until transferred. I attest to the content of the Intraoperative Record and any orders documented therein. Any exceptions are noted below.
--- NOTE | 2017-06-03 07:08 | Discharge Instructions ---
Discharge Instructions Date of Service Jun 03, 2017. Admission Reason for Admission: Ureteric Stone Discharge Discharge Diagnosis / Problem: Stone Discharge Goals Goal(s): Decrease discomfort, Improve function Activity Recommendations Activity Limitations: resume your previous activity Lifting Limitations: none Exercise/Sports Limitations: as tolerated Shower/Bathe: no limitations . Instructions / Follow-Up Instructions / Follow-Up May have blood in urine and discomfort in flank or pelvis. Call if any fevers or issues. Current Hospital Diet Patient's current hospital diet: Regular Discharge Diet Recommended Diet: Regular Diet Procedures Procedures Performed: Cystoscopy, Right URS, Laser Litho, Retrograde, Stent Pending Studies Studies pending at discharge: no Medical Emergencies . Who to Call and When: Medical Emergencies: If at any time you feel your situation is an emergency, please call 911 immediately. . Non-Emergent Contact Non-Emergency issues call your: Primary Care Provider, Urologist Call Non-Emergent contact if: you have a fever, temperature is above 101, temperature is above 101.5, your pain is not controlled, your pain is worsening . . "Provider Documentation" section prepared by Gavin You,. . VTE Core Measure Inpt VTE Proph given/why not?: Sandra Bateman, SCD's
--- NOTE | 2017-06-03 08:50 | Anesthesiology Progress Note ---
Anesthesia Post Op Note Date & Time Jun 03, 2017 at 08:49 Vital Signs Pain Intensity: 0 Vital Signs Past 12 Hours Date Time Temp Pulse Resp B/P (MAP) Pulse Ox O2 Delivery O2 Flow Rate FiO2 06/03/17 08:40 36.5 64 16 104/68 94 Room Air 06/03/17 08:25 65 14 108/67 93 Room Air 06/03/17 08:15 67 18 103/66 96 Room Air 06/03/17 08:05 70 16 96/67 95 Oxymask 8 06/03/17 07:58 36.5 71 16 106/72 95 Oxymask 8 06/03/17 05:34 36.7 71 18 122/75 (91) 97 Room Air Notes Mental Status: alert / awake / arousable, participated in evaluation Pt Amnestic to Procedure: Yes Nausea / Vomiting: adequately controlled Pain: adequately controlled Airway Patency, RR, SpO2: stable & adequate BP & HR: stable & adequate Hydration State: stable & adequate Anesthetic Complications: no major complications apparent
[2017-06-03 08:55] VITALS: BP 115/70; PULSE 67; TEMP 36.8; O2SAT 97
[2017-06-03 09:25] VITALS: BP 120/71; PULSE 77; O2SAT 98
[2017-06-03 09:55] VITALS: BP 125/75; PULSE 72; TEMP 37.1; O2SAT 97
--- NOTE | 2017-06-03 10:43 | DIAGNOSTIC IMAGING REPORT ---
RETROGRADE INCLUDES KUB CLINICAL HISTORY: 37 years-old Female presenting with RT LASER LITHO AND STENT PLACEMENT. TECHNIQUE: 6 fluoroscopic spot image(s) obtained as part of an intraoperative procedure. COMPARISON: CT from 05/14/2017 and radiograph from 05/22/2017. FINDINGS/IMPRESSION: A catheter was introduced into the distal right ureter. Contrast seen opacifying the right renal collecting system and left ureter. Subsequently, guidewire was introduced into an upper pole calyx. A double-J ureteral stent was then placed. Please see surgical report for further details. Fluoroscopy dosage (mGy): Not available. Fluoroscopy time: 28 seconds. Number of fluoroscopic spot images: 6. Electronically signed by: Constantino Ward M.D. 06/03/2017 10:42 AM Dictated Date/Time: 06/03/2017 10:40 AM
== END | disposition home or self-care (01) ==
LOC: C.ACU 05:11
PROVIDERS: ATTEND Urology
DX: N20.1 Calculus of ureter (principal); N20.0 Calculus of kidney; E11.9 Type 2 diabetes mellitus without complications; Z88.5 Allergy status to narcotic agent; F30.9 Manic episode, unspecified; E78.00 Pure hypercholesterolemia, unspecified; G47.00 Insomnia, unspecified; F41.8 Other specified anxiety disorders; Z90.89 Acquired absence of other organs; Z98.84 Bariatric surgery status; Z79.899 Other long term (current) drug therapy; E66.01 Morbid (severe) obesity due to excess calories; Z68.42 Body mass index [BMI] 45.0-49.9, adult; Z87.891 Personal history of nicotine dependence; Z82.49 Family history of ischemic heart disease and other diseases of the circulatory system; Z83.3 Family history of diabetes mellitus; Z82.0 Family history of epilepsy and other diseases of the nervous system

== ENCOUNTER → 2017-06-18 | Outpatient (CLI) | payer OTHER ==
[~2017-06-18] MED LIST changes: -ATROPINE SULFATE 0.1 MG/ML 5ML SYR IV PRN; -CIPR1TAB11 PO; -CIPROFLOXACIN / D5W 400 MG IV SCH; -CONRAY 30% 150ML BOTTLE ONE; -EpHEDrine SULFATE INJ 50 MG/ML AMP IV PRN; -FENTANYL CITRATE INJ 50 MCG/1 ML 2 ML VIAL IV PRN; -FENTANYL CITRATE INJ 50 MCG/1 ML 2 ML VIAL ONE; -FLUMAZENIL 0.1 MG/1 ML 10 ML VIAL IV PRN; -KETOROLAC TROMETHAMINE 30 MG/ML VIAL ONE; -LABETALOL HCL IV 5 MG/ML 20ML IV PRN; -LACTATED RINGER'S 1000ML 1,000 ML IV SCH; -LIDOCAINE HCL 2% 2 ML VIAL (20MG/ML) ONE; -MIDAZOLAM HCL 1 MG/ML 2ML VIAL ONE; -NALOXONE HCL 0.4 MG/1 ML VIAL/CARP IV PRN; -ONDANSETRON INJ 2 MG/ML 2 ML VIAL IV PRN; -ONDANSETRON INJ 2 MG/ML 2 ML VIAL ONE; -OXYCODONE/ACETAMINOPHEN 7.5-325 TAB PO PRN; -PROMETHAZINE HCL INJ 12.5 MG in SODIUM CHLORIDE 0.9% 50ML 50 ML IV PRN; -PROPOFOL IV EMULSION 10 MG/ML 100 ML VIAL IV ONE; -PROPOFOL IV EMULSION 10 MG/ML 20 ML VIAL IV ONE
--- NOTE | 2017-06-18 13:53 | DIAGNOSTIC IMAGING REPORT ---
(RENAL)RETROPERITON COMP CLINICAL HISTORY: 37 years-old Female presenting with N20.1 Ureteric [id number]. TECHNIQUE: Real-time grayscale and limited color Doppler ultrasound imaging of the kidneys and bladder was performed. COMPARISON: CT from 05/14/2017.. FINDINGS: Right kidney: Normal echogenicity. Right kidney measures 11.8 cm. No hydronephrosis. No convincing evidence of calculus or mass. Normal perfusion. Left kidney: Normal echogenicity. Left kidney measures 11.9 cm. No hydronephrosis. Hyperechoic 5 mm shadowing focus with twinkling artifact consistent with calculus at the lower pole. Normal perfusion. Bladder: Incompletely distended. No ureteral jets visualized. Other: None. IMPRESSION: 1. No hydronephrosis. 2. Nonobstructing 5 mm left lower pole renal calculus. Electronically signed by: Constantino Ward M.D. 06/18/2017 1:52 PM Dictated Date/Time: 06/18/2017 1:50 PM
== END | disposition home or self-care (01) ==
LOC: C.ULTR 11:59
PROVIDERS: ATTEND Urology
DX: N20.1 Calculus of ureter (principal)

== ENCOUNTER 2017-07-29 04:58 | Day surgery (SDC) | payer OTHER ==
[2017-07-25 13:08] VITALS: BMI 45.0
[~2017-07-29] VITALS: Ht 167.6 cm; Wt 127.3 kg
[~2017-07-29 04:58] MED LIST changes: +ATR25 PO; +BENZ0.5T28 PO; -OXYC7.5T65 PO; -PHEN-876 PO
[2017-07-29 05:42] VITALS: BP 114/69; PULSE 71; TEMP 36.7; O2SAT 97; Ht 167.6 cm; Wt 127.3 kg
[2017-07-29] MEDS ORDERED: CEFAZOLIN 2000MG IV PUSH 10 ML IV SCH (06:00)
[2017-07-29] MEDS ORDERED: LACTATED RINGER'S 1000ML 1,000 ML IV SCH (06:00)
[2017-07-29] MEDS ORDERED: PROPOFOL IV EMULSION 10 MG/ML 20 ML VIAL IV ONE ×3 (06:46→08:59)
[2017-07-29] MEDS ORDERED: LIDOCAINE HCL 2% 2 ML VIAL (20MG/ML) ONE (06:46)
[2017-07-29] MEDS ORDERED: FENTANYL CITRATE INJ 50 MCG/1 ML 2 ML VIAL ONE (06:46)
[2017-07-29] MEDS ORDERED: MIDAZOLAM HCL 1 MG/ML 2ML VIAL ONE ×3 (06:46→07:33)
[2017-07-29] MEDS ORDERED: ONDANSETRON INJ 2 MG/ML 2 ML VIAL ONE (06:47)
[2017-07-29] MEDS ORDERED: BUPIVACAINE 0.5 % 5 MG/1 ML MPF 30ML VIAL ONE (06:54)
[2017-07-29] MEDS ORDERED: BACITRACIN OINT 15 GM TUBE ONE (06:54)
[2017-07-29] MEDS ORDERED: LIDOCAINE HCL 1% 20 ML VIAL ONE (06:54)
[2017-07-29] MEDS ORDERED: FENTANYL CITRATE INJ 50 MCG/1 ML 2 ML VIAL IV PRN (07:15)
[2017-07-29] MEDS ORDERED: ONDANSETRON INJ 2 MG/ML 2 ML VIAL IV PRN ×2 (07:15→09:15)
[2017-07-29] MEDS ORDERED: ATROPINE SULFATE 0.1 MG/ML 5ML SYR IV PRN (07:15)
[2017-07-29] MEDS ORDERED: LABETALOL HCL IV 5 MG/ML 20ML IV PRN (07:15)
[2017-07-29] MEDS ORDERED: SODIUM CHLORIDE 0.9% 1000ML 1,000 ML IV SCH (09:02)
--- NOTE | 2017-07-29 09:02 | [facility] Post Operative Brief Note ---
Immediate Operative Summary Operative Date Jul 29, 2017. Pre-Operative Diagnosis Poor IV Access Post-Operative Diagnosis Poor IV Access Procedure(s) Performed A-Port Insertion into Right Subclavian Vein Surgeon Dr. Boogie Win Geriatric Nurse Surgeon(s) none Estimated Blood Loss 10mL Findings patent right subclavian vein Fluids (cc crystalloids) 1100ml Specimens none per surgeon Drains none Anesthesia sedation + local Complication(s) None Disposition Recovery Room / PACU
[2017-07-29] MEDS ORDERED: OXYC-57 PO (09:05)
--- NOTE | 2017-07-29 09:09 | Discharge Instructions ---
Discharge Instructions Date of Service Jul 29, 2017. Visit Reason for Visit: Iron Deficiency Anemia Discharge Discharge Diagnosis / Problem: S/P A-port insertion Discharge Goals Goal(s): Decrease discomfort, Improve function Activity Recommendations Activity Limitations: resume your previous activity Lifting Limitations: none Exercise/Sports Limitations: rest today May Resume Sexual Activity: when tolerated Shower/Bathe: may shower/bathe in 3 days Driving or Machine Use: resume 3 days after discharge Anesthesia . Post Anesthesia Instructions: If you have had General Anesthesia or IV Sedation: * Do not drive today. * Resume driving when surgeon permits. * Do not make important decisions or sign legal documents today. * Call surgeon for: 1. Temperature elevations greater than 101 degrees F. 2. Uncontrollable pain. 3. Excessive bleeding. 4. Persistent nausea and vomiting. 5. Medication intolerance (nausea, vomiting or rash). * For nausea and vomiting use only clear liquids such as: tea, soda, bouillon until nausea subsides, then gradually increase diet as tolerated. * If you have any concerns or questions, call your surgeon's office. If physician is unavailable and it is an emergency, call 911 or go to the nearest emergency room. . Instructions / Follow-Up Instructions / Follow-Up keep the dressing on for 4 days, she can take a shower on 08/02/2017, no driving while taking pain medicine, Follow up Dr. Win 1 week, Diet Recommendations Recommended Home Diet: resume previous diet Procedures Procedures Performed: A-Port Insertion into Right Subclavian Vein Pending Studies Studies pending at discharge: no Medical Emergencies . Who to Call and When: Medical Emergencies: If at any time you feel your situation is an emergency, please call 911 immediately. . Non-Emergent Contact Non-Emergency issues call your: Surgeon Call Non-Emergent contact if: you have a fever, temperature is above 100.5, your pain is not controlled, your pain is worsening, wound has increased drainage, wound has increased redness . . "Provider Documentation" section prepared by Adele Win. . [place] Drug Monitoring Program Search Results: no issues identified
[2017-07-29] MEDS ORDERED: OXYCODONE/ACETAMINOPHEN 5-325 TAB PO PRN ×2 (09:15)
--- NOTE | 2017-07-29 09:34 | DIAGNOSTIC IMAGING REPORT ---
CHEST ONE VIEW PORTABLE CLINICAL HISTORY: post op tube position COMPARISON STUDY: 03/23/2017 FINDINGS: Moderate stable cardiomegaly. Right central catheter placed in the superior vena cava. No evidence pneumothorax. Lungs are considered clear. IMPRESSION: Central catheter placed in the superior vena cava. No evidence for pneumothorax. The above report was generated using voice recognition software. It may contain grammatical, syntax or spelling errors. Electronically signed by: Cosme Gomez M.D. 07/29/2017 9:33 AM Dictated Date/Time: 07/29/2017 9:32 AM
[2017-07-29 09:40] VITALS: BP 119/76; PULSE 66; TEMP 36.7; O2SAT 99
--- NOTE | 2017-07-29 09:40 | OPERATIVE REPORT ---
DATE OF OPERATION: 07/29/2017 PREOPERATIVE DIAGNOSIS: Difficult IV access. POSTOPERATIVE DIAGNOSIS: Same. PROCEDURE: A-port insertion on the right subclavian vein. SURGEON: Adele Win MD. ANESTHESIA: Conscious sedation plus local. ESTIMATED BLOOD LOSS: About 10 mL. FINDINGS: Patent right subclavian vein. INDICATIONS FOR THE PROCEDURE: This is a 37-year-old female who presented with difficult IV access. The patient will be required to do A-port insertion. I did talk to the patient about the benefit and risk, alternate procedure. I indicated the risks may include but not limited such as bleeding, infection, injury to vessel, injury to the lung, blood clot, dysfunction of catheter and even . The patient understands. She signed informed consent and I answered all questions. DETAILS OF PROCEDURE: We brought the patient to the OR, put the patient on the Trendelenburg position and the patient received SCD on bilateral legs to prevent DVT. Also, the patient received 2 grams Ancef IV for prophylactic antibiotic. The patient received conscious sedation by the anesthesiology. The patient's right side of the neck and the right upper chest was prepped and draped in routine sterile fashion. After time out, I used ultrasound to locate the right internal jugular vein and also we injected local anesthesia by using 1% lidocaine mixed with 0.5% Marcaine around the right neck and made a 0.5 cm incision and used the needle to puncture the right internal jugular and then we got into internal jugular; however, patient had a short neck and difficult to put the wire. At this moment, I chose the right subclavian vein, used a 15-gauge needle to puncture the right subclavian vein successfully and put the wire in and used an x-ray to confirm the wire located in the SVC. At this moment, we injected the local on the right upper chest by using 1% lidocaine mixed with 0.5% Marcaine on the right upper chest. Then I made about a 2 cm incision on the right upper chest to create a pouch for the port. Hemostasis obtained. Then I passed the dilator and catheter through the guidewire and removed the wire and then passed [id number] through the dilator sheath. Then we removed the sheath and then we sized the catheter and connected to the port. Then we used fluoroscopy again to confirm the catheter located in the junction between the superior vena cava at the right atrium. Then I used 2-0 Prolene to fix at 3 point on the chest wall. Hemostasis was obtained. Then I used 2-0 Vicryl. Closed subcutaneous layer continuous running 4-0 Vicryl, closed the skin continuous running. Then we used heparinized saline syringe to puncture the port from all sites skin, easily blood returned and we injected 10 mL heparinized saline into the port easily. Then we put the dressing on. The patient tolerated the procedure well. All the instrument, needle and sponge count correct x2 at the end of the case. After the procedure, the patient transferred to recovery room in stable condition. After the procedure, I did talk to the patient and family member about OR finding and procedure we did, they understand. I attest to the content of the Intraoperative Record and any orders documented therein. Any exception s are noted below.
[2017-07-29 10:18] VITALS: BP 122/75; PULSE 72; TEMP 36.8; O2SAT 98
--- NOTE | 2017-07-29 10:50 | Anesthesiology Progress Note ---
Anesthesia Post Op Note Date & Time Jul 29, 2017 at 10:50 Vital Signs Pain Intensity: 1 Vital Signs Past 12 Hours Date Time Temp Pulse Resp B/P (MAP) Pulse Ox O2 Delivery O2 Flow Rate FiO2 07/29/17 10:18 36.8 72 16 122/75 98 Room Air 07/29/17 09:40 36.7 66 18 119/76 99 Room Air 07/29/17 09:30 66 15 108/76 99 Room Air 07/29/17 09:20 36.2 67 15 122/79 99 Room Air 07/29/17 09:10 66 15 115/72 100 Nasal Cannula 2 07/29/17 09:00 68 16 115/77 100 Nasal Cannula 2 07/29/17 08:54 36.1 73 16 125/70 100 Nasal Cannula 2 07/29/17 05:42 36.7 71 18 114/69 (84) 97 Room Air Notes Mental Status: alert / awake / arousable, participated in evaluation Pt Amnestic to Procedure: Yes Nausea / Vomiting: adequately controlled Pain: adequately controlled Airway Patency, RR, SpO2: stable & adequate BP & HR: stable & adequate Hydration State: stable & adequate Anesthetic Complications: no major complications apparent
[2017-07-30] MEDS ORDERED: CEFAZOLIN SOD 2000MG/10 ML IV PUSH IV SCH (06:00)
== END 2017-07-29 10:21 | disposition home or self-care (01) ==
LOC: C.ACU 04:58
PROVIDERS: ATTEND Surgery
DX: Z45.2 Encounter for adjustment and management of vascular access device (principal); E11.9 Type 2 diabetes mellitus without complications; E78.5 Hyperlipidemia, unspecified; Z98.890 Other specified postprocedural states; Z90.89 Acquired absence of other organs; E66.01 Morbid (severe) obesity due to excess calories; Z68.42 Body mass index [BMI] 45.0-49.9, adult; Z79.899 Other long term (current) drug therapy; J45.909 Unspecified asthma, uncomplicated; Z98.84 Bariatric surgery status; F41.9 Anxiety disorder, unspecified; Z83.3 Family history of diabetes mellitus; Z82.49 Family history of ischemic heart disease and other diseases of the circulatory system

== ENCOUNTER → 2017-10-14 | Outpatient (CLI) | payer OTHER ==
--- NOTE | 2017-10-14 14:10 | DIAGNOSTIC IMAGING REPORT ---
RENAL ULTRASOUND CLINICAL HISTORY: Nephrolithiasis. COMPARISON STUDY: CT of the abdomen and pelvis May 14, 2017 and renal ultrasound June 18, 2017. TECHNIQUE: Sonography of the kidneys and the urinary bladder was performed. FINDINGS: There is no hydronephrosis. A 4 mm calculus within the lower pole of the left kidney is noted. The right kidney measures 12.7 cm in maximal dimension and the left measures 13.8 cm. Renal echogenicity, size and cortical thickness are normal. Both ureteral jets were visualized. IMPRESSION: 1. No hydronephrosis. 2. No change in a left renal calculus which measures approximately 4 mm. Electronically signed by: Jose Stallworth M.D. 10/14/2017 2:09 PM Dictated Date/Time: 10/14/2017 2:07 PM
== END | disposition home or self-care (01) ==
LOC: C.ULTR 12:44
PROVIDERS: ATTEND Urology
DX: N20.0 Calculus of kidney (principal)

== ENCOUNTER 2017-10-29 09:07 | Emergency (ER) | payer OTHER ==
[~2017-10-29] VITALS: Ht 167.6 cm; Wt 133.0 kg
[2017-10-29 09:13] VITALS: Ht 167.6 cm; Wt 133.0 kg
[2017-10-29] MEDS ORDERED: IBUPROFEN 600 MG TAB PO STA (09:31)
[2017-10-29] MEDS ORDERED: SERT50TA PO (09:36)
[2017-10-29] MEDS ORDERED: CYNI1000 INJ (09:37)
[2017-10-29] MEDS ORDERED: XYLOCAINE 1%/SOD BICARB 20 ML VIAL INFIL ONE (09:45)
--- NOTE | 2017-10-29 10:37 | DIAGNOSTIC IMAGING REPORT ---
R HAND MIN 3 VIEWS ROUTINE CLINICAL HISTORY: 37 years-old Female presenting with R finger pain, laceration. TECHNIQUE: Frontal, oblique, and lateral views the right hand were obtained. COMPARISON: None. FINDINGS: No acute fracture or malalignment. No advanced degenerative change. No radiographic soft tissue abnormality. The site of the reported laceration is not apparent. IMPRESSION: No acute osseous injury. Electronically signed by: Constantino Ward M.D. 10/29/2017 10:36 AM Dictated Date/Time: 10/29/2017 10:34 AM
[2017-10-29 12:00] VITALS: BP 135/92; PULSE 61; TEMP 36.9; O2SAT 100
--- NOTE | 2017-10-29 17:14 | EMERGENCY ROOM VISIT NOTE ---
ED Visit Note First contact with patient: 09:14 Chief Complaint: I cut my right middle finger at work. History of Present Illness: Ms. Mayes is a 37-year-old white female who ambulates into the ED complaining of a middle finger laceration. Patient reports less than 1 hour ago she was at work and a broken jar of pickles fell onto her right hand and she sustained a laceration to the posterior aspect of the right middle finger. Prior to discharge then attempted to control bleeding but was unsuccessful and they did not wash the wound. Associated with her laceration she reports she is having a throbbing discomfort throughout the finger and a burning sensation around the laceration. She rates her discomfort 10/10. Her pain is nonradiating. Her pain worsens with palpation throughout the entire finger and also predominantly over the laceration. She has not identified any alleviating factors related to the pain. She has not had a medication for pain prior to arrival at the hospital. She denies any associated symptoms including other hand pain, other finger pain , middle finger weakness/numbness/tingling. Review of Systems: As noted above in history of present illness. Past Medical History: Anemia, ureter calculus, diabetes, bipolar disorder, status post gastric bypass. Current Medications: Abilify, Wellbutrin, Imitrex, hydroxyzine, Zoloft, benztropine, cyanocobalamin. Allergies to Medications: Metformin, morphine, neomycin, exenatide, phenol, zolpidem, Social History: Patient is currently employed; she feels safe in her home environment; she denies tobacco and alcohol use. Tetanus Immunization Status: Patient reports up-to-date. Physical Examination: Vital Signs: Date Time Temp Pulse Resp B/P (MAP) Pulse Ox O2 Delivery O2 Flow Rate FiO2 10/29/17 12:00 36.9 61 16 135/92 100 10/29/17 11:48 61 16 135/92 100 Room Air 10/29/17 09:13 36.9 82 16 145/88 98 Room Air GENERAL: 37-year-old female in mild to moderate distress due to pain, nontoxic- appearing, afebrile and hemodynamically stable. NEUROLOGICAL: Awake, alert and oriented to person, place and time. Answering questions appropriately and following commands. Normal gait. Good hand eye coordination. SKIN: Warm, dry and pink. Right Middle Finger: Over the posterior aspect of the finger patient has an inverted V-shaped laceration with flap measuring 5.2 cm in length. There continues to be active bleeding. RIGHT HAND: Soft tissue injury as noted above. No gross bony deformity. Moderate tenderness throughout the finger without bony deformity or crepitus. Initially patient refused to do range of motion exercises due to pain but once anesthetized she had full range of motion in flexion and extension of the MCP, PIP and DIP joint. Prior to anesthesia the skin was warm and pink and capillary refill was brisk and she was able to distinguish light sensations. ED Course: Patient is assessed as noted above. Patient's medication list was reviewed. Patient initially received 600 mg of ibuprofen by mouth for pain. Right Hand X-Rays: Were read by myself and the radiologist showing no acute fractures or dislocations. Wound Repair: Complexity: Basic. Verbal consent was obtained after the risks and benefits were explained. A digital block was performed with a total of 4.3 mL of buffered 1% lidocaine. The skin was prepped with betadine and a sterile field set. The wound was explored and no foreign bodies were noted and no tendon injuries were noted. Copious irrigation was performed using sterile saline. With direct pressure the bleeding subsided. Debridement was not performed. The wound edges were approximated using 5-0 Ethilon with 15 simple interrupted sutures. There continued to be mild oozing bleeding and excellent approximation was achieved. Antibacterial ointment and a sterile dressing applied. Patient was placed in a metal finger splint in slight flexion of all joints. No complications and the patient tolerated the procedure well. Patient was educated about tonight's findings and instructed on her treatment plan; she verbalizes understanding and agreement with this plan. Clinical Impression: Laceration of the right middle finger. Work-related injury. Disposition: Patient discharged home in stable condition; prior to departure he was reassessed and subjectively reported she was pain-free. Plan: Comfort measures, wound care, and signs of infection were discussed with the patient. Patient was encouraged to follow-up with Workmen's Compensation or return to the ED for signs of infection and/or suture removal in 10-12 days.
== END 2017-10-29 12:01 | disposition home or self-care (01) ==
LOC: C.EDB 09:08 → C.EDA 12:01
DX: S61.212A Laceration without foreign body of right middle finger without damage to nail, initial encounter (principal); W25.XXXA Contact with sharp glass, initial encounter; E11.9 Type 2 diabetes mellitus without complications; F31.9 Bipolar disorder, unspecified; Z87.442 Personal history of urinary calculi; Z98.84 Bariatric surgery status; Z88.8 Allergy status to other drugs, medicaments and biological substances; Z88.6 Allergy status to analgesic agent; Z88.1 Allergy status to other antibiotic agents; Z79.899 Other long term (current) drug therapy

== ENCOUNTER 2017-11-08 14:56 | Emergency (ER) | payer OTHER ==
[~2017-11-08] VITALS: Ht 167.6 cm; Wt 134.0 kg
[~2017-11-08 14:56] MED LIST changes: -ABL10 PO; -BUPR100T8 PO; -CYNI1000; +CYNI1000 INJ; +SERT50TA PO
[2017-11-08 15:06] VITALS: BP 129/79; PULSE 76; TEMP 36.9; O2SAT 97; Ht 167.6 cm; Wt 134.0 kg
--- NOTE | 2017-11-08 15:17 | EMERGENCY ROOM VISIT NOTE ---
ED Visit Note First contact with patient: 15:09 CHIEF COMPLAINT: Removal of sutures HISTORY OF PRESENT ILLNESS: This 37-year-old female patient presents to the emergency department for removal of sutures from their right third finger. The sutures were placed 10 days ago. There have been no signs of infection. The patient denies any pain. REVIEW OF SYSTEMS: A review of systems was performed with positives and pertinent negatives listed in the history of present illness. All other systems were reviewed and are negative. ALLERGIES: See EMR MEDICATIONS: Unchanged from previous visit. PMH: Unchanged from previous visit. SOCIAL HISTORY: Patient lives locally. PHYSICAL EXAM: VITALS: Vitals are noted on the nurse's note and reviewed by myself. Vital signs stable. GENERAL: This is a 37-year-old female, in no acute distress, nondiaphoretic, well-developed well-nourished. SKIN: There is a well-healing sutured wound on the right third finger with no signs of infection. EMERGENCY DEPARTMENT COURSE: The patient was evaluated as above. Sutures were removed from the finger with no dehiscence. There is no evidence of infection. Scar reduction measures were discussed the the patient. They verbalized understanding and were discharged home in good condition. DIAGNOSIS: Encounter for suture removal DISCHARGE INSTRUCTIONS & TREATMENT: Wash the remaining crusts off the wound. Keep the wound covered with SPF for the next 6 months to reduce scarring. Once the wound has fully healed, you may apply Vitamin E oil, cocoa butter, or any over the counter scar reducing formulations daily. Problem List Medical Problems: (1) Bipolar disorder Status: Chronic (2) Inevitable Status: Resolved Surgical Problems: (1) Gastric bypass status for obesity Status: Resolved Current/Historical Medications Scheduled Aripiprazole (Abilify), 10 MG PO QPM Benztropine Mesylate (Benztropine Mesylate), 0.5 MG PO QAM Bupropion (Wellbutrin Sr), 100 MG PO QAM Cyanocobalamin (Cyanocobalamin), 1,000 MCG INJ Q3MO Hydroxyzine HCl (Hydroxyzine HCl), 25 MG PO QPM Sertraline (Zoloft), 50 MG PO QAM Scheduled PRN Sumatriptan Succinate (Imitrex), 50 MG PO UD PRN for Migraine Allergies Coded Allergies: BEE STING (Verified Allergy, Intermediate, Redness/Hot, 10/29/17) Morphine (Unverified Allergy, Intermediate, RASH, 10/29/17) Phenol (Verified Allergy, Intermediate, REDNESS AT INJECTION SITE, 10/29/17 ) Exenatide (Verified Allergy, Mild, REDNESS AT INJECTION SITE, 10/29/17) Neomycin (Verified Allergy, Mild, EAR DROPS -RASH IN EAR, 10/29/17) Metformin (Verified Adverse Reaction, Intermediate, SEVERE DIARRHEA, ) Zolpidem (Verified Adverse Reaction, Intermediate, INCREASED ANXIETY, 10/29) Adhesives (Verified Adverse Reaction, Mild, RASH, 10/29/17) Vital Signs Date Time Temp Pulse Resp B/P (MAP) Pulse Ox O2 Delivery O2 Flow Rate FiO2 11/08/17 15:06 36.9 76 20 129/79 97 Room Air Departure Information Impression Primary Impression: Encounter for removal of sutures Dispostion Home / Self-Care Condition GOOD Referrals Lio Manzanares M.D. (PCP) Patient Instructions My [facility] Additional Instructions Wash the remaining crusts off the wound. Keep the wound covered with SPF for the next 6 months to reduce scarring. Once the wound has fully healed, you may apply Vitamin E oil, cocoa butter, or any over the counter scar reducing formulations daily.
[2017-11-08] MEDS ORDERED: ABL10 PO (21:22)
[2017-11-08] MEDS ORDERED: BUPR100T8 PO (21:22)
== END 2017-11-08 15:39 | disposition home or self-care (01) ==
LOC: C.EDB 14:57 → C.EDD 15:39
DX: S61.212D Laceration without foreign body of right middle finger without damage to nail, subsequent encounter (principal); X58.XXXD Exposure to other specified factors, subsequent encounter